=== PATIENT | male | born 1935 | race African-American/Black ===

== ENCOUNTER → 2016-06-29 | Outpatient (CLI) | payer MEDICARE ==
[~2016-06-29] MED LIST: AMIODARONE PO; ANORO ELLIPTA1 EACH INH; ASPIRIN81 MG PO; COMBIVENT U/D3 M2 INH; DEXAMETHASONE4 M1 PO; DIGOXIN125 MCG PO; MEGACE ORA40 MG/ML S PO; SPIRIVA RESPIMAT4 G1 INH; SPIRIVA18 MCG INH; TENORMIN25 MG PO; VITAMIN B12 PO; XARELTO15 MG PO
--- NOTE | ~2016-06-29 | XA166 ---
[facility] A Service of [facility] [place] RADIOLOGY TEXT RESULTS PATIENT: MALU PORTILLO LOCATION: CIVR : 35 UNIT #: [id number] AGE: [address]: James Hadley MD SEX: M ORDER DR: [id number] [facility] [address] [place], [place] [address] [id number] O MR#: [id number] Acc #: [id number] NAME: MALU PORTILLO : 1935 SEX: M STUDY DATE/TIME: 06/29/2016 13:31 UNIT: CIVR ROOM: STUDY DESCRIPTION: XA PICC Line Placement WO Port Attending Physician: James Hadley M.D. Ordering Physician: James Hadley M.D. Primary Care Physician: Macarena Ventura M.D. MEDICAL IMAGING REPORT This report is preliminary unless electronic signature is present EXAM Right-sided PICC line placement HISTORY Need for IV access in a patient with a history of left lung cancer. He was diagnosed with recurrent disease in January of 2016. PRE-PROCEDURE The procedure was explained to the patient and/or patient outside sales representative insurance including risks, benefits, potential complications and potential for alternative forms of treatment. Informed consent was obtained, and prior to initiating the procedure a formal timeout procedure was performed. PROCEDURE Using full standard sterile barrier technique, including caps, gowns, gloves, masks, as well as sterile skin preparation and standard sterile draping, the right arm was prepped and draped in the usual fashion, and real-time sterile ultrasound guidance was used to localize an arm vein and to confirm vessel patency. A hard copy ultrasound image was recorded. After local anesthesia with 1% Xylocaine, the vein was punctured using real-time sterile ultrasound guidance, and an 0.018 guidewire was advanced into the superior vena cava, using fluoroscopic guidance. A 4 Nepali single-lumen PICC was then measured and deployed with the tip positioned in the superior vena cava. The position of the line was documented with a radiographic image. The line was secured in place with an adhesive dressing and an antibiotic patch was applied. Total fluoro time was 0.1 minutes. AK was 1 mGy. IMPRESSION Successful placement of a 4 Nepali single-lumen PowerPICC via the right arm under ultrasound and fluoroscopic guidance. The tip of the PICC is in STS. [facility] A Service of [facility] [place] RADIOLOGY TEXT RESULTS PATIENT: MALU PORTILLO LOCATION: [facility] : 35 UNIT #: [id number] AGE: [address]: James Hadley MD SEX: M ORDER DR: good position in the superior vena cava. Dictated by... Juliet Garcia M.D. THIS IS AN ELECTRONICALLY VERIFIED REPORT Juliet Garcia M.D. at 06/30/2016 10:03 AM Yunior TD: 06/30/2016 08:45 JOB #: [id number] MEDICAL IMAGING REPORT Page 1 of 1 COPY
== END | disposition home or self-care (01) ==
LOC: CIVR 12:37
PROC: 02HV33Z Insertion of Infusion Device into Superior Vena Cava, Percutaneous Approach (ICD-10-PCS; principal; 2016-06-29)
DX: Z45.2 Encounter for adjustment and management of vascular access device (principal); C34.90 Malignant neoplasm of unspecified part of unspecified bronchus or lung; C77.1 Secondary and unspecified malignant neoplasm of intrathoracic lymph nodes; R07.89 Other chest pain; J44.9 Chronic obstructive pulmonary disease, unspecified; D64.9 Anemia, unspecified; Z79.82 Long term (current) use of aspirin; Z79.899 Other long term (current) drug therapy
CPT/HCPCS: 76937; 77001; C1751; J1642

== ENCOUNTER 2016-10-12 15:30 | Observation (INO) | payer MEDICARE ==
[~2016-10-12] VITALS: Ht 182.9 cm; Wt 68.8 kg
--- NOTE | ~2016-10-12 | EKG ---
PATIENT: MALU PORTILLO UNIT #: [id number] Ventricular Rate: 66 BPM Atrial Rate: 66 BPM P-R Interval: 162 ms QRS Duration: 122 ms Q-T Interval: 492 ms QTC Calculation(Bezet): 515 ms P [place]: 84 degrees Calculated R Princeton: 89 degrees Calculated T Princeton: 82 degrees Diagnosis Line: Normal sinus rhythm Diagnosis Line: Right bundle branch block Diagnosis Line: T wave abnormality, consider anterior ischemia Diagnosis Line: Abnormal ECG Diagnosis Line: No previous ECGs available Diagnosis Line: Confirmed by LARISSA ANDERSON MD ([id number]) on 10/13/2016 Diagnosis Line: 5:29:34 PM INTERPRETING MD: MONICA HUBBARD
--- NOTE | ~2016-10-12 | CR72 ---
[facility] A Service of [facility] RADIOLOGY TEXT RESULTS PATIENT: MALU PORTILLO LOCATION: [facility] 577 : 35 UNIT #: [id number] AGE: [address]: Miko Jimenez MD SEX: M ORDER DR: [id number] [facility] [address] [place], [place] [address] [id number] I MR#: [id number] Acc #: [id number] NAME: MALU PORTILLO : 1935 SEX: M STUDY DATE/TIME: 10/12/2016 17:18 UNIT: [facility] ROOM: [facility] STUDY DESCRIPTION: CR Chest Single View Portable Attending Physician: Miko Jimenez M.D. Ordering Physician: Miko Jimenez M.D. Primary Care Physician: Macarena Ventura M.D. MEDICAL IMAGING REPORT This report is preliminary unless electronic signature is present EXAM Portable chest radiograph. INDICATION Shortness of breath starting today. Patient is also noted to have atrial flutter. COMPARISON Comparison made to a prior exam from September 07, 2016. FINDINGS There is persistent volume loss and hazy opacity of the left hemithorax which is unchanged when compared to September 07, 2016. Right-sided PICC line extends into the superior vena cava. Cardiomediastinal silhouette is unchanged. No definite pneumothorax or pleural effusion is seen. There is some stable right infrahilar scarring. No definite acute infiltrates are seen. 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 Dictated by... Juliet Garcia M.D. THIS IS AN ELECTRONICALLY VERIFIED REPORT Juliet Garcia M.D. at 10/13/2016 11:03 AM AFF/tmw TD: 10/13/2016 10:01 JOB #: [id number] MEDICAL IMAGING REPORT Page 1 of 1 COPY
--- NOTE | ~2016-10-12 | DS ---
Unit #: [id number] #: [id number] Patient: MALU PORTILLO [id number] [address] [place], [place] [address] [id number] I MR#: [id number] NAME: MALU PORTILLO ROOM: 577 Age: 81 Sex: M Admission Date: 10/12/2016 : 1935 Discharge Date: 10/13/2016 Attending Physician: Miko Jimenez M.D. Primary Care Physician: Macarena Ventura M.D. DISCHARGE SUMMARY DISCHARGE DIAGNOSES 1. New onset atrial flutter with 2:1 conduction with rapid ventricular response, converted to normal sinus rhythm. 2. Two-D echocardiogram (done in office) ejection fraction 45% to 50%. No pericardial effusion. Moderate tricuspid regurgitation. Right ventricular systolic pressure of 40 mmHg. 3. Chronic obstructive pulmonary disease. 4. Status post lung surgery for cancer with history of chemoradiation therapy. DISCHARGE MEDICATIONS 1. Amiodarone 200 mg daily. 2. Spiriva 18 mcg one inhalation daily. 3. Xarelto 15 mg daily. 4. Anoro Ellipta one inhalation daily. 5. Megace 40 mg daily. 6. Atenolol 25 mg daily. 7. Aspirin 81 mg daily. HOSPITAL COURSE This is an 81-year-old male who was seen in the office as a new patient because of elevated heart rate. EKG found the patient to be in atrial flutter with rapid ventricular response with a rate of 150 beats per minute. It was initially felt the patient might have pericardial effusion but echocardiogram done in the office showed no evidence of pericardial effusion. His ejection fraction was 45% to 50%. He was admitted to the hospital, started on anticoagulation with Lovenox. His blood pressure was low normal so unable to put the patient on Cardizem. He was started on IV amiodarone and given IV fluids with potassium supplement. Chest x-ray showed no evidence of heart failure. Electrolytes were within normal limits. His heart rate remained elevated and was started on a beta daniel. He successfully converted to normal sinus rhythm. He has a CHADS2-Vasc score of 3 and would need long-term anticoagulation. Lovenox was discontinued and the patient was started on Xarelto; awaiting the cost of Xarelto for the patient. His heart rate and blood pressure remained stable throughout the day. He is stable for discharge today. ASSESSMENT VITAL SIGNS: Blood pressure 102/52, heart rate is 52, temperature 97.7. CHEST: Occasional rhonchi. HEART: S1, S2. Heart sounds are normal. No murmurs. No rubs or clicks. Regular rate and rhythm. ABDOMEN: Soft, nontender, with bowel sounds present. EXTREMITIES: Without leg edema. Unit #: [id number] #: [id number] Patient: MALU PORTILLO DIAGNOSTIC STUDIES LABORATORY: Glucose 118, BUN 27, creatinine 1.1, sodium 135, potassium 4.2, troponin less than 0.03, white count 5.8, hemoglobin 10.0, hematocrit 29.9, platelet count is 298. IMAGING: Chest x-ray shows persistent volume loss and haziness of the left hemithorax which is unchanged. CARDIOVASCULAR: EKG normal sinus rhythm with a rate of 66 beats per minute with right bundle branch block. There is T-wave inversion V1 through V4. DISCHARGE INSTRUCTIONS 1. The patient will be discharged home today. 2. Follow up with: a. Primary care physician in 7 to [address] Jimenez on November 27 at 2:30 p.m. 3. The patient will continue on Xarelto for anticoagulation for stroke prevention. 4. Atrial flutter will be controlled with amiodarone and atenolol. Dictated by... Akhil Medley A.P.R.N. for Sona Cueva/alberto TD: 10/15/2016 20:05 JOB #: [id number] DISCHARGE SUMMARY Page 1 of 1 X Akhil Medley APRN DISCHARGE SUMMARY
[2016-10-12] MEDS ORDERED: SPIRIVA RESPIMAT4 G1 INH (17:28)
[2016-10-12] MEDS ORDERED: ANORO ELLIPTA1 EACH INH (17:28)
[2016-10-12] MEDS ORDERED: ASPIRIN81 MG PO (17:28)
[2016-10-12] MEDS ORDERED: MEGACE ORA40 MG/ML S PO (17:28)
[2016-10-12 17:32] LABS: HEMATOCRIT 29.9 % (38.0-50.0); MEAN CELL VOLUME 98.5 FL (83-96); MEAN CORPUSCULAR HEMOGLOBIN 32.9 PG (28-34); MEAN CORPUSCULAR HGB CONC 33.4 g/dL (30-36); RED BLOOD COUNT 3.04 X10e (3.90-5.60); RED CELL DISTRIBUTION WIDTH 15.4 % (11.0-15.5); WHITE BLOOD COUNT 5.8 X10e3 (4.0-10.5)
[2016-10-12 17:46] LABS: INR 1.1; PARTIAL THROMBOPLASTIN TIME 26.7 SECONDS (23.5-31.3); PROTHROMBIN TIME (PATIENT) 11.4 SECONDS (10.0-11.7)
[2016-10-12 18:07] LABS: ALBUMIN SERUM 3.7 g/dL (3.5-5.0); BILIRUBIN,TOTAL 0.3 mg/dL (0.2-2.0); BUN/CREATININE RATIO 24.54; CALCIUM SERUM 9.4 mg/dL (8.4-10.2); CREATININE SERUM 1.1 mg/dL (0.6-1.4); GLOM FILT RATE Estimated 72.6 mL/min (>60); POTASSIUM 4.2 mmol/L (3.5-5.1); PROTEIN TOTAL SERUM 8.4 g/dL (6.0-8.3)
[2016-10-12 18:26] LABS: %MB 3.4 % (0.0-4.0); MB 2.1 ng/ml
[2016-10-13] MEDS ORDERED: TENORMIN25 MG PO (15:49)
[2016-10-13] MEDS ORDERED: XARELTO15 MG PO (15:49)
[2016-10-13] MEDS ORDERED: AMIODARONE PO (15:50)
[2016-11-02] MEDS ORDERED: DEXAMETHASONE4 M1 PO (18:49)
[2016-11-02] MEDS ORDERED: DIGOXIN125 MCG PO (18:49)
[2016-11-02] MEDS ORDERED: COMBIVENT U/D3 M2 INH (18:50)
[2016-11-02] MEDS ORDERED: SPIRIVA18 MCG INH (18:50)
[2016-11-02] MEDS ORDERED: VITAMIN B12 PO (22:09)
== END 2016-10-13 17:57 | disposition home or self-care (01) ==
LOC: UNDOADMOB 15:30 → CEDOF 15:30 → UNDOADMOB 16:44 → C5C 16:44 → C3A PCU 16:56 → CEDOF 16:56 → C3A PCU 16:56 → C5C 20:01
PROVIDERS: Internal Medicine Cardiovascular Disease
DX: I48.92 Unspecified atrial flutter (principal); J44.9 Chronic obstructive pulmonary disease, unspecified; Z85.118 Personal history of other malignant neoplasm of bronchus and lung; Z87.891 Personal history of nicotine dependence; Z79.01 Long term (current) use of anticoagulants; Z79.82 Long term (current) use of aspirin; Z79.899 Other long term (current) drug therapy
CPT/HCPCS: 71010; 80053; 82550; 82553; 82947; 84484; 85027; 85610; 85730; 93005; 96372; 96374; 96375; 96376; G0378; J0282; J1650; J3475; J3480